=== PATIENT | male | born 1965 | race Caucasian/White ===

== ENCOUNTER → 2016-12-02 07:44 | Outpatient (CLI) | payer MEDICARE ==
--- NOTE | 2016-12-04 08:06 | EMG ---
PATIENT:PEARL MENA DATE OF SERVICE: 12/02/16 MEDICAL RECORD: [id number] DATE OF : 67 LOCATION: [facility] ADMISSION DATE: REFERRING PHYSICIAN: LEBRON BROWNE MD INTERPRETING PHYSICIAN: PETROS ELIZALDE MD DATE OF SERVICE: 12/02/2016 REFERRING PHYSICIAN: Referred by Dr. Browne as an outpatient. ELECTROMYOGRAPHIC DATA: Electromyographic examination is limited to both upper extremities. In the right upper extremity, right median motor stimulation elicits a compound motor action potential with a distal latency of 6.7 milliseconds, peak amplitude of 4 millivolts, and calculated conduction velocity of 44 meters per second. Right ulnar motor stimulation elicits a compound motor action potential with a distal latency of 3.6 milliseconds, peak amplitude of 4 millivolts, and calculated conduction velocity of 46 meters per second. Right ulnar motor stimulation across the elbow fails to elicit evidence of conduction block at this level. Antidromic right median sensory stimulation elicits a response with a distal latency of 4.9 milliseconds, amplitude of only 2 microvolts and calculated conduction velocity of 42 meters per second. Antidromic right ulnar sensory stimulation elicits a response with a distal latency of 3.8 milliseconds, amplitude of 5 microvolts and calculated conduction velocity of 42 meters per second. The right median F wave has a latency of 37 milliseconds. In the left upper extremity, left median motor stimulation elicits a compound motor action potential with a distal latency of 4.4 milliseconds, peak amplitude of 4 millivolts, and calculated conduction velocity of 51 meters per second. Left ulnar motor stimulation elicits a compound motor action potential with a distal latency of 3.2 milliseconds, peak amplitude of 5 millivolts, and calculated conduction velocity of 47 meters per second. Left ulnar motor stimulation across the elbow fails to elicit evidence of conduction block at this level. Antidromic left median sensory stimulation elicits a response with a distal latency of 4.4 milliseconds, amplitude of 6 microvolts and calculated conduction velocity of 52 meters per second. Antidromic left ulnar sensory stimulation elicits a response with a distal latency of 4.0 milliseconds, amplitude of 5 microvolts and calculated conduction velocity of 52 meters per second. The left median F wave has a latency of 32 milliseconds. Needle electrode examination is limited to both upper extremities as well. Muscles interrogated include the abductor pollicis brevis, first dorsal interosseous, abductor digiti minimi, pronator teres, biceps brachii, triceps and deltoid. There is no abnormality of insertional activity and no abnormal spontaneous activity is seen in all muscles interrogated. Motor unit potential morphology and the pattern of motor unit potential firing and recruitment is normal in all muscles sampled. 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 There is no electrical evidence of a superimposed cervical radiculopathy or other lesion of the lower motor neuron in the upper extremities at this time with the exception ELECTROMYGRAM/NERVE CONDUCTION [id number] PEARL MENA that the right median F wave is prolonged as compared to the left. In the absence of any other changes in the nerve conduction studies or needle electrode examination, this is a soft finding only, may indicate a more proximal lesion such as a cervical radiculopathy. There is no evidence for active denervation. TRANSINT:[id number] Voice Confirmation ID: [id number] DOCUMENT ID: [id number] PETROS ELIZALDE MD at [id number] CC: [id number] DICTATION DATE: 12/02/16 0851 SHOE SPRAYER: 12/03/16 0109 DEP CLI 12/02/16 [facility] [address] [place] [address]
== END | disposition home or self-care (01) ==
LOC: D.CN 07:44
DX: G56.03 Carpal tunnel syndrome, bilateral upper limbs (principal)

== ENCOUNTER → 2019-06-21 08:40 | Outpatient (CLI) | payer MEDICARE ==
[2019-06-21 09:54] LABS: BASOPHILS 0.3 % (0-2); EOSINOPHILS 1.3 % (0-7); HEMATOCRIT 45.1 % (42.0-54.0); HEMOGLOBIN 15.7 g/dL (13.5-17.5); IMMATURE GRANULOCYTES 0.3 % (0-5); LYMPHOCYTES 36.7 % (15-50); MCH 32.9 pg (26.0-34.0); MCHC 34.8 g/dL (31.0-37.0); MCV 94.5 fL (80.0-100.0); MEAN PLATELET VOLUME 10.4 fL (7.4-10.4); MONOCYTES 9.3 % (2-11); NEUTROPHILS 52.1 % (40-80); PLATELET COUNT 252 10x3/uL (130-400); RBC 4.77 10x6/uL (4.20-6.10); RDW 13.1 % (11.5-14.5); WBC 5.9 10x3/uL (4.8-10.8)
[2019-06-21 10:02] LABS: ALBUMIN 3.8 g/dL (3.4-5.0); ALKALINE PHOSPHATASE 79 U/L (30-120); ALT (SGPT) 18 U/L (10-68); BILIRUBIN - TOTAL 0.39 mg/dL (0.2-1.3); CALC OSMOLALITY 286 mosm/kg (275-300); CALCIUM 8.7 mg/dL (8.5-10.1); CARBON DIOXIDE 34.7 mmol/L (21.0-32.0); CHLORIDE - SERUM 103 mmol/L (98-107); CREATININE - SERUM 0.8 mg/dL (0.6-1.3); GLUCOSE 171 mg/dL (74-106); POTASSIUM - SERUM 4.1 mmol/L (3.5-5.1); PROTEIN - SERUM 6.9 g/dL (6.4-8.2); SODIUM 141 mmol/L (136-145); UREA NITROGEN 19 mg/dL (7-18); eGFR NON AFRICAN AMERICAN > 90 mL/min (90-120)
[2019-06-22 07:12] LABS: HEPATITIS C ANTIBODY 6.4 S/CO RAT (0.0-0.9)
[2019-06-22 08:10] LABS: ALPHA FETOPROTEIN -(TUMOR MRK) 1.3 ng/mL (0.0-8.3)
== END | disposition home or self-care (01) ==
LOC: D.LAB 08:40 → D.US 09:30
PROVIDERS: ATTEND Internal Medicine Gastroenterology
DX: K51.90 Ulcerative colitis, unspecified, without complications (principal); E11.9 Type 2 diabetes mellitus without complications; Z86.19 Personal history of other infectious and parasitic diseases; Z79.899 Other long term (current) drug therapy